=== PATIENT | female | born 2000 | race Caucasian/White ===

== ENCOUNTER 2025-04-10 11:50 | Outpatient (REF) | payer MEDICAID, SELFPAY ==
--- OUTSIDE RECORDS SUMMARY | 2025-04-10 12:56 | XMS_ITS | Continuity of Care Document ---
Author Organization [facility] Address [address] [place] [address]- Care Team Providers Care Hospitality Host Name Role Phone Not on Staff, PCP Primary Care Physician Unavail able Encounter [facility] Date(s): 04/04/25 - 04/05/[address] [address]- Discharge Disposition: A-D/C Home Attending Physician: Maddy Prado MD Admitting Physician: Maddy Prado MD Referring Physician: Not on Staff, Referring MD Encounter Type: Disch ES Allergies, Adverse Reactions, Alerts Substance Criticality Severity Reaction Reaction Severity Status azithromycin Active Immunizations Given and Recorded Vaccine Date Status Refusal Reason Measles/Mumps/Rubella Virus Vaccine 06/07/20 Given Measles/Mumps/Rubella Virus Vaccine 11/20/18 Given tetanus/diphtheria/pertussis, acel(Tdap) 04/02/20 Given influenza virus vaccine, inactivated 01/03/20 Give n influenza virus vaccine, inactivated 11/20/18 Give n Problem List Condition Confirmation Course Effective Dates Status Health St atus Informant Bilateral calf pain Confirmed Active H/O Chronic lung disease Confirmed 1998 Active H/O: pneumonia Confirmed Active Headache in Confirmed Active History of gestational hypertension Confirmed Active Itching Confirmed Active Asthma Confirmed Active Confirmed Active Rubella equivocal Confirmed Active Umbilical hernia Confirmed Active Results Radiology Reports * Exam Date Time Procedure Performing Provider Status 04/05/25 6:29 AM Knee 3 Views Right Jacquie Weinberg; Aut h (Verified) Notes: (Knee 3 Views Right) Reason For Exam: with Pain;Trauma RESULT: Knee 3 Views Right Knee 3 Views Right Hx of Present Illness: midsternal CP x 2 days that happens when she stands up fast or goes up stair . Denies cough, fever or chills N V D; Reason: Trauma; with Pain; Clinical Question(s): Fracture;Special Instructions: [place] ([place]) COMPARISON: 03/21/2025 FINDINGS: There is no evidence of acute or healing fracture, dislocation or bone lesion. No arthritic changes. No osteochondral defects or intra-articular loose bodies. Unchanged small moderate joint effusion. IMPRESSION: No acute osseous abnormality. Unchanged small moderate joint effusion. WSN: [id number] Ordering Physician: Maddy Prado Dictated By: Shad Flynn MD Dictated Date/Time: 04/05/25 8:41 am Reviewed By: Shad Flynn MD Signed By: Shad Flynn MD Signed Date/Time: 04/05/25 8:41 am Transcribed By: SURAJ Transcribed Date/Time: 04/05/25 8:40 am Vital Signs Most recent to oldest [Reference Range]: 1 2 3 Height 163 cm (04/05/25 1:47 AM) 163 cm (04/05/25 1:47 AM) 163 cm (04/04/25 10:18 PM) Weight 54.5 kg (04/05/25 1:47 AM) 54.5 kg (04/05/25 1:47 AM) 54.5 kg (04/04/25 10:18 PM) Oxygen Saturation [94-100 %] 100 % (04/05/25 5:01 AM) 100 % (04/05/25:47 AM) 100 % (04/04/25 9:45 PM) Pulse Rate [55-90 bpm] 75 bpm (04/05/25 5:01 AM) 63 bpm (04/05/25 1:47 AM) 92 bpm *H* (04/04/25 9:45 PM) Body Mass Index [18.5-24.99 kg/m2] 20.51 kg/m2 (04/05/25 1:47 AM) 20.51 kg/m2 (04/04/25 9:45 PM) Blood Pressure [90-138/55-84 mm Hg] 127/70mm Hg (04/05/25 5:01 AM) 96/63mm Hg (04/05/25 1:47 AM) 136/75mm Hg (04/04/25 9:45 PM) Respiratory Rate [16-30 br/min] 16 br/min (04/05/25 5:01 AM) 16 br/min (04/04/25 9:45 PM) Temperature [96.8-100.4 DegF] 98.3 DegF (04/05/25 5:01 AM) 98.3 DegF (04/05/25 1:47 AM) 98.4 DegF (04/04/25 9:45 PM) Mode of Delivery (Oxygen) Room air (04/05/25 5:01 AM) Room air (04/05/25 1:47 AM) Room air (04/04/25 9:45 PM) Blood pressure sites Arm, left (04/05/25 1:47 AM) Arm, left (04/04/25 9:45 PM) Temperature Route Oral (04/05/25: AM) Oral (04/05/25 1:47 AM) Oral (04/04/25 9:45 PM) Weight Obtained Via Patient/family state d (04/04/25 9:45 PM) Social History Social History Type Response Smoking Status Never (less than 100 in lifetime) entered on: 09/10/24 Sex Sex Representation Female (finding) Note * Johan LUKE, Maddy Omalley: PERFORM Event Display: Patient Education Leaflets Authored Date: [id number] Tendonitis ?? [id number] Tendonitis A tendon is the thick, fibrous cord that joins muscle to bone and allows joints to move. When a tendon becomes inflamed, it's called tendonitis. This can occur from??overuse, injury, or infection. Itoften affects the shoulders, forearm, wrist, hands, or feet. Symptoms include pain, swelling, and soreness to the touch. Moving the joint increases the pain. It takes 4 to 6 weeks or more for tendonitis to heal. It's treated by preventing motion of the tendon, occasionally with a splint or brace, using ice or heat, and the use of anti-inflammatory medicine. Home care ??? Some people find relief with ice packs. To make an ice pack, put ice cubes in a plastic bag that seals at the top. Wrap the bag in a thin towel or cloth before using. Don't put ice or an ice pack directly on the skin. ??? Other people get better relief with heat. This can include a hot shower, hot bath, or a moist towel warmed in a microwave. Try each and use the method that feels best for 15 to 20 minutes several times a day. ??? Rest the inflamed joint and protect it from movement. ??? You may use ymeg-fgs-jxcwqwd ibuprofen or naproxen??to treat pain and inflammation, unless another medicine was prescribed. If you can't take these medicines, acetaminophen??may help with the pain. But it doesn't treat inflammation. If you have chronic liver or kidney disease, have ever had a stomach ulcer or??gastrointestinal bleeding, or take blood thinners, talk with your health care provider before using these medicines. ??? As your symptoms improve, begin gradual motion at the affected joint. ?? Follow-up care Follow up with your health care provider if you're not improving after 5 to 7 days of treatment. ?? When to get medical advice Contact your health care provider right away if you have: ??? Redness over the painful area. ??? More pain or swelling at the joint. ??? A fever lasting 24 to 48 hours or as advised by your provider.??? Chills. ?? Last Reviewed Date: 2024 00:00:00 ?? [id number] The [employer]. All rights reserved. This information is not intended as a substitute for professional medical care. Always follow your healthcare professional's instructions. ?? * Johan LUKE, Maddy Omalley: PERFORM Event Display: Patient Education Leaflets Authored Date: [id number] Physical Therapy Referral ?? 250 ?? This page is FOR PRESCRIBERS Only, ? DO NOT GIVE TO THE PATIENT?? Physical Therapy Referral Program for Management of Pain In an effort to reduce narcotic use, some of our ED patients will benefit from a direct referral torehab care.?? [facility] will see INSURED patients and has a system in place to avoid sending follow up paperwork to the ED prescribers.? Note: Non-[facility] physical therapy services will probably NOT be able to handle ED generated PT referrals. ?? Patients should still follow up with their PCP as soon as possible regarding their ongoing care. Inform patients that [facility] will discuss insurance when they call.?? Some insurance plans limit the amount of PT a patient can receive each year. ?? Complete the FIRST PAGE of the patient???s referral sheet. [place] or write in diagnosis. M odify the timing for treatment, if needed. List any major precautions (i.e.?? Non-weight bearing limb), if needed. Sign, date and print your name at the bottom. ? Physical Therapy Referral Form Patient Instructions: You are being referred to physical therapy.?? This form is your referral and MUST be brought to your appointment. You need to call to set up your appointment. ?? This form can be used at any [facility] location.?? A list of locations is attached.?? 1)?? DIAGNOSIS/ICD-10 ([place] one) Cervicalgia: M54.2 ? Strain of muscle, fascia and tendon at neck level: S16.1XXD? Radiculopathy, cervical region: M54.12? Mid back pain: M54.9 ? Low back pain:?? M54.5 Strain of muscle, fascia and tendon of lower back: S39.012D Radiculopathy, lumbosacral region: M54.17 Other:? 2)? [? ]? Evaluate and Treat 2 Times/Week for 4 weeks as needed [? ]?Other: 3)? [? ]? No Precautions [? ]?Precautions: ?? I hereby certify these services as medically necessary for the patient???s plan of care. Physician???s Signature Date Physician Name (printed)? Locations You can call any location below.?? Tell them you were seen in a [facility] Department and have a referral form.?? Remember to bring your referral form with you to the appointment. PHOEBE Elliott [id number]? PHOEBE Billings [address] [address] [facility], [address]? [address] [place] [address] Road ? PHOEBE Wilk[place] [address]? PHOEBE Glover [address] [address] [facility]? [address] ? [place] [address]? [place] [address] [place] [address] Avenue ? [place] [address]? [facility] [address] ? Patient Care team information Care Team Personnel Name: Not on Staff, PCP Position: [facility] Physician (General Medicine) Member Role: PCP Care Team Related Persons Name: CHUNG GARCIA Name: ASH GARCIA Name: KEITH GARCIA Name: JUAN LUIS MORENO Name: JUAN LUIS MORENO Name: BERHANE MORENO Insurance Providers Guarantor name: CLAUDY CHEN [email or web address] Plan Information #: 1 Payer: [employer] Member Number: [id number] Policy Number: NA Group Number: NA Health Plan Information #: 2 Payer: [employer] Member Number: [id number] Policy Number: NA Group Number: NA
--- OUTSIDE RECORDS SUMMARY | 2025-04-10 12:56 | XMS_ITS | Encounter Summary ---
Author Organization [employer] Address [address] [place] [address] Care Team Providers Care Provider Relations Specialist Name Role Phone Melinda Gray MD Primary Care Provider + Encounter Details Date Type Department Care Team (Late st Contact Info) Description 04/10/2025 10:45 AM EDT Office Visit [facility] [address] [place], [place] [phone] Melinda Gray MD [address] [place], [place] [phone] Sprain of right knee, unspecified ligament, initial encounter (Primary Dx); Pre-hypertension; Mild intermittent asthma without complication; Arthralgia of both knees Social History Tobacco Use Types Packs/Day Years Used Date Smoking Tobacco: Never Smokeless Tobacco: Never Tobacco Cessation:Counseling Given: Not Answered Alcohol Use Standard Drinks/Week Comments Never 0 (1 standard drink = 0.6 oz pur e alcohol) Housing Stability Answer Date Recorded What is your housing situation today? I have patrickcorinne javier 04/10/[address] you li ve. Do you have problems with any of the following? None of the above 04/10/2025 Food Insecurity Answer Date Recorded Within the past 12 months, y ou worried that your food would run out before you got money to buy more: Never True 04/10/2025 Within the past 12 months,th e food you bought just didn't last and you didn't have enough money to get more: Never True Transportation Answer Date Recorded In the past 12 months, has l ack of transportation kept you from medical appts, meetings, work or from getting things needed for daily living? No 04/10/2025 Utilities Answer Date Recorded In the past 12 months, has t he electric, gas, oil or water [employer] threatened to shut off services in your home? No 04/10/2025 Depression Answer Date Recorded Patient Health Questionnaire-2 Score 0 04/10/2025 Internet Access Answer Date Recorded Internet Access Q1 No 04/10/2025 Internet Access Q2 I do not want or need it 03/27 Comments Unknown Sex and Gender Information Value Date Recorded Sex Assigned at Unknown 04/10/2025 10:42 AM EDT Legal Sex Female 1:50 PM EST Gender Identity Choose not to disclose 10:42 AM EDT Sexual Orientation Don't know 04/10/2025 10 :43 AM EDT documented as of this encounter Last Filed Vital Signs Vital Sign Reading Time Taken Comments Blood Pressure 145/85 04/10/2025 10:51 AM EDT Pulse 73 04/10/2025 10:51 AM EDT Temperature 36.3 ??C (97.4 ??F) 04/10/2025 10:51 AM E DT Respiratory Rate - - Oxygen Saturation 98% 04/10/2025 10:51 AM EDT Inhaled Oxygen Concentration - - Weight 57.7 kg (127 lb 4 oz) 04/10/2025 10:51 AM EDT Height 162.6 cm (5' 4 ) 04/10/2025 10:51 AM EDT Body Mass Index 21.84 04/10/2025 10:51 AM EDT documented in this encounter Functional Status * Over the past 2 weeks, how often have you been bothered by any of the following problems? Question Answer Date of Assessment Author Little interest or pleasure in doing things Not at all 04/10/2025 10:54 AM EDT Zhou Kumar [place] Feeling down, depressed, or hopeless Not at all 04/10/2025 10:54 AM EDT Zhou Kumar MA Patient Health Questionnaire-2 Score 0 04/10/2025 10:54 AM EDT Sanjeev Kumar MA documented as of this encounter Plan of Treatment Upcoming Encounters Date Type Department Care Team (Late st Contact Info) Description 07/02/2025 11:30 AM EDT Office Visit [facility] [address] [place] [address] Melinda Gray MD [address] [place] [address] Scheduled Orders Name Type Priority Associated Diagnoses Orde r Schedule MELINDA Screen,IFA, with Reflex to Titer and Pattern Lab Routine Arthralgia of both knees Expected: 04/10/2025 (Approximate), Expires: 04/10/2026 Sed Rate by Modified [place] Lab Routine Arthralgia of both knees Expected: 04/10/2025 (Approximate), Expires: 04/10/2026 C-reactive Protein Lab Routine Arthralgia of both knees Expected: 04/10/2025 (Approximate), Expires: 04/10/2026 Rheumatoid Factor Lab Routine Arthralgia of both knees Expected: 04/10/2025, Expires: 04/10/2026 Uric acid Lab Routine Arthralgia of both knees Expected: 04/10/2025 (Approximate), Expires: 04/10/2026 CBC auto differential Lab Routine Arthralgia of both knees Expected: 04/10/2025 (Approximate), Expires: 04/10/2026 Hepatitis Panel, General Lab Routine Arthralgia of both knees Expected: 04/10/2025 (Approximate), Expires: 04/10/2026 Comprehensive Metabolic Panel Lab Routine Pre-hypertension Expected: 04/10/2025 (Approximate), Expires: 04/10/2026 TSH with Reflex to Free T4 Lab Routine Pre-hypertension Expected: 04/10/2025 (Approximate), Expires: 04/10/2026 Vitamin D, 25-Hydroxy, Total, Immunoassay Lab Routine Arthralgia of both knees Expected: 04/10/2025 (Approximate), Expires: 04/10/2026 Lipid Panel with Reflex to Direct LDL Lab Routine Pre-hypertension Expected: 04/10/2025 (Approximate), Expires: 04/10/2026 documented as of this encounter Visit Diagnoses Diagnosis Sprain of right knee, unspecified ligament, initial encounter- Primary Pre-hypertension Elevated blood pressure reading without diagnosis of hypertension Mild intermittent asthma without complication Arthralgia of both knees documented in this encounter Care Teams Provider Relations Specialist Relationship Specialty Start Date End Date Melinda Gray MD [address] [place] [address] PCP - General Internal Medicine 04/10/25 documented as of this encounter
--- OUTSIDE RECORDS SUMMARY | 2025-04-10 12:56 | XMS_ITS | Encounter Summary ---
Author Organization [employer] Address [address] [place] [address] Care Team Providers Care Dye Lab Technician Name Role Phone Melinda Gray MD Primary Care Provider + Encounter Details Date Type Department Care Team (Late st Contact Info) Description 04/10/2025 Telephone [facility] [address] [place], [place] [phone] Blayne Cortez MD [address] [place], [place] [phone] Social History Tobacco Use Types Packs/Day Years Used Date Smoking Tobacco: Never Smokeless Tobacco: Never Alcohol Use Standard Drinks/Week Comments Never 0 (1 standard drink = 0.6 oz pur e alcohol) Housing Stability Answer Date Recorded What is your housing situation today? I have patrick javier 04/10/[address] you [...] t he electric, gas, oil or water company threatened to shut off services in your [...] AM EDT documented as of this encounter Miscellaneous Notes * Telephone Encounter - Sulema Guzmán - 04/10/2025 9:52 AM EDT Outgoing call to patient to book New Patient appt. Patient booked for 04-10-2025 with [facility] No Medical DX Reported : *Medical Office Receptionist advised caller to arrive 15 minutes early for the visit. Caller was also informed to notifythe clinic if the visit is no longer needed. No-shows will be placed at the bottom of the scheduling list. Appt reminder and sent via text and mail. documented in this encounter Plan of Treatment Upcoming Encounters Date Type Department Care Team (Late st Contact Info) Description 07/02/2025 11:30 AM EDT Office Visit [facility] [address] [place] [phone] Melinda Gray MD [address] [place] [address] documented as of this encounter Visit Diagnoses Not on filedocumented in this encounter Care Teams Dye Lab Technician Relationship Specialty Start Date End Date Melinda Gray MD [address] [place] [address] PCP - General Internal Medicine 04/10/25 documented as of this encounter
--- OUTSIDE RECORDS SUMMARY | 2025-04-10 12:56 | XMS_ITS | Encounter Summary ---
Author Organization [employer] Address [address] [facility] 7t [place] [address] Care Team Providers Care Business Data Analyst Name Role Phone Melinda Gray MD Primary Care Provider + Encounter Details Date Type Department Care Team (Latest Contact Info) Description 04/10/2025 Travel Social History Tobacco Use Types Packs/Day Years [...] AM EDT documented as of this encounter Functional Status * Over the [...] Description 07/02/2025 11:30 AM EDT Office Visit [facility] [address] [place] [address] Melinda Gray MD [address] [place] [address] documented as of this encounter Visit Diagnoses Not on filedocumented in this encounter Care Teams Business Data Analyst Relationship Specialty Start Date End Date Melinda Gray MD [address] [place] [id number] PCP - General Internal Medicine 04/10/25 documented as of this encounter
--- OUTSIDE RECORDS SUMMARY | 2025-04-10 12:56 | XMS_ITS | Clinical Summary ---
Author Organization [facility] Address [address] [facility] [address]t [place] [address] Care Team Providers Care Knife Setter Grinder Machine Name Role Phone Melinda Gray MD Primary Care Provider + Allergies Active Allergy Reactions Criticality Noted Date Comments Azithromycin Hives 11/09/2021 Medications albuterol 108 (90 Base) MCG/ACT inhaler Inhale 2 puffs every 6 (six) hours if needed for wheezing. 18 g 1 5 04/10/20 26 Active Blood Pressure Monitoring (Blood Pressure Cuff) misc Use daily as prescribed 1 each 5 Active Encounters Date Type Department Care Team Description 04/10/2025 10:45 AM EDT Office Visit [facility] [address] [place] [address] Melinda Gray MD Sprain of right knee, unspecified ligament, initial encounter (Primary Dx); Pre-hypertension; Mild intermittent asthma without complication; Arthralgia of both knees 04/10/2025 Population Health Risk Score [facility] ([facility]) Department [address] [phone] Provider, Population Health Generic 04/10/2025 Travel 04/10/2025 Telephone [facility] [address] [place] [address] Blayne Cortez MD from Last 3 Months Social History Tobacco Use Types Packs/Day Years [...] Don't know 04/10/2025 10 :43 AM EDT Last Filed Vital Signs Vital Sign Reading [...] Mass Index 21.84 04/10/2025 10:51 AM EDT Plan of Treatment Upcoming Encounters Date Type Department Care Team (Late st Contact Info) Description 07/02/2025 11:30 AM EDT Office Visit [facility] [address] [place] [address] Melinda Gray MD [address] [place], [place] [phone] Health Maintenance Due Date Last Done Comments HIV Screening 1999 Alcohol/Substance Use Screening 2011 Family Planning (PISQ) 2014 Hepatitis C Screening 2017 Hepatitis A Vaccines (2 of 2 - 2-dose series) 03/14/2018 09/13/2017 Pneumococcal Vaccine: Pediatrics (0 to 5 Years) and At-Risk Patients (6 to 49) Years) (1 of 2 - PCV) 2018 02/01/2001, 10/24/2000, 09/19/2000 Pap Smear 2020 COVID-19 Vaccine ( - 2023- season) 2024 Influenza Vaccine (#1) 2024 , 11/23/2021, 01/03/2020, Additional history exists Depression Screening 04/10/2026 04/10/2025, 04/10/20 25 SDOH Screening 04/10/2026 04/10/2025 Tobacco Screening 04/10/2026 04/10/2025 DTaP/Tdap/Td Vaccines (11 - Td or Tdap) 04/11/2033 04/11/2023, 04/19/2022, 04/02/2020, Additional history exists Zoster Vaccines (1 of 2) 2049 RSV Patients and Patients Aged 60 years or older (1 - 1-dose 75+ series) 2074 Hepatitis B Vaccines Completed 09/19/2000, 04/05/2000, 1999 HIB Vaccines Completed 01/03/2002, 09/28, 04/05/2000, Additional history exists IPV Vaccines Completed 07/26/2005, 08/28, 04/05/2000, Additional history exists HPV Vaccines Completed 02/11/2014, 06/0 11/2011, 08/12/2011 Meningococcal Vaccine Completed 09/06/2016, 011 Meningococcal B Vaccine Aged Out No l onger eligible based on patient's age to complete this topic RSV under 20 months Aged Out No longe r eligible based on patient's age to complete this topic Rotavirus Vaccines Aged Out No longer eligible based on patient's age to complete this topic Insurance [facility] C[facility] Care Teams Knife Setter Grinder Machine Relationship Specialty Start Date End Date Melinda Gray MD [address] [place] [address] PCP - General Internal Medicine 04/10/25
--- OUTSIDE RECORDS SUMMARY | 2025-04-10 12:57 | XMS_ITS | Encounter Summary ---
Author Organization [facility] Address [address] [place] [phone] Phone Care Team Providers Care Planner Name Role Phone Eliana Roper MD Primary Care Provider [phone] Encounter Details Date Type Department Care Team (Late st Contact Info) Description 04/15/2018 Conversion [facility]counter [facility] [address] [place] [address] Eliana Roper MD [address] [place] [address] Social History Tobacco Use Types Packs/Day Years Used Date Smoking Tobacco: Never Assessed Comments Unknown Sex and Gender Information Value Date Recorded Sex Assigned at Not on file Legal Sex Female 6:25 PM EDT Gender Identity Not on file Sexual Orientation Not on file documented as of this encounter Plan of Treatment Not on file documented as of this encounter Visit Diagnoses Not on filedocumented in this encounter Care Teams Planner Relationship Specialty Start Date End Date Eliana Roper MD [address] [place] [address] PCP - General 04/04/18 06/07/20 documented as of this encounter
--- OUTSIDE RECORDS SUMMARY | 2025-04-10 12:57 | XMS_ITS | Encounter Summary ---
Author Organization [facility] Address [address] [place] [address] Phone Care Team Providers Care Hearing Screener Name Role Phone Eliana Roper MD Primary Care Provider [phone] Encounter Details Date Type Department Care Team ([facility] st Contact Info) Description 04/27/2020 [facility] Out[facility] [address] [address] Eliana Roper MD [address] [place] [address] Social History Tobacco Use Types Packs/Day Years [...] on filedocumented in this encounter Care Teams Hearing Screener Relationship Specialty Start Date End Date Eliana Roper MD [address] [place] [address] PCP - General 04/04/18 06/07/20 documented as of this encounter
--- OUTSIDE RECORDS SUMMARY | 2025-04-10 12:57 | XMS_ITS | Clinical Summary ---
Author Organization [facility] Address [address] [place] [id number] Phone Care Team Providers Care Biological Aide Name Role Phone Unavailable Primary Care Provider Unavailabl e Allergies Active Allergy Reactions Criticality Noted Date Comments Azithromycin Hives Medications albuterol HFA 108 (90 Base) MCG/ACT inhaler Inhale. 10/28/2016 Act mirna Active Problems Problem Noted Date Diagnosed Date Susceptible varicella 11/21/2018 Overview (11/21/2018): OB found her to be varicella nonimmune so should have at least one additional dose varicella vaccine. See tel encounter. Should be after 12/21/18 since received MMR#3 on 11/20/18 (Rubella indeterminate). ADHD 10/12/2018 Overview (10/12/2018): Variable results on [facility] [id number], also positive for ODD, conduct disorder Mild intermittent asthma without complication Resolved Problems Problem Noted Date Diagnosed Date Resolved Date 07/26/2018 11/23/2018 Immunizations Immunization Administration Dates Next Due DTaP 07/27/2005, 2,10/24/2000,04/05,01/14/2000 HPV, Quadrivalent 02/11/2014,04/27/2012,08/12/20 11 Hep A, ped/adol 09/13/2017 Hep B, ped/adol 09/19/2000,04/05/2000,1999 Hib (PRP-T) 01/03/2002, 0,04/05/2000,01/14 IPV 07/26/2005, 0,04/05/2000,01/14 Influenza, injectable, quadrivalent 09/06/2016,0 08/13/2012,07/09/2010 Influenza, injectable, quadr ivalent, preservative free 11/20/2018,09/13/2017,08/22/2014,02/11,08/12/2011 MMR 11/20/2018,07/27/2005,01/05/2001 Meningococcal Conj (Menactra) MCV4P 09/06/2016,0 08/12/2011 Pneumococcal Conjugate 02/01/2001,10/24/2000, Tdap 08/12/2011 Varicella 06/11/2009,01/05/2001 Family History Medical History Relation Name Comments ADD / ADHD Brother Hypertension Father Sleep apnea Father Bipolar disorder Maternal Grandmother Schizophrenia Maternal Grandmother ADD / ADHD Mother Addiction problem Mother Bipolar disorder Mother No Known Problems Paternal Grandmother Relation Name Status Comments Brother Father sleep apnea morris gnosed with Hypertension Maternal Grandfather Maternal Grandmother Alive bipolar , schizophrenia diagnosed with NONPSYCHOT BRAIN SYN NOS Mother Alive adhd, bipolar, addictions, incarceration and over eight children by at least 3 fathers. diagnosed with NONPSYCHOT BRAIN SYN NOS Other Alive Siblings: broth er adhd, another sib being tested for adhd and maternal first cousin with adhd. Paternal Grandfather Alive Paternal Grandmother Alive Healthy Social History Tobacco Use Types Packs/Day Years Used Date Smoking Tobacco: Never Assessed Comments Unknown Sex and Gender Information Value Date Recorded Sex Assigned at Not on file Legal Sex Female 6:25 PM EDT Gender Identity Not on file Sexual Orientation Not on file Last Filed Vital Signs Vital Sign Reading Time Taken Comments Blood Pressure 114/64 03/28/2018 12:00 AM EDT Pulse 96 01/19/2016 12:00 AM EST Temperature 37.2 ??C (98.9 ??F) 03/28/2018 12:00 AM E DT Respiratory Rate - - Oxygen Saturation 99% 01/19/2016 12:00 AM EST Inhaled Oxygen Concentration - - Weight 66.7 kg (147 lb) 03/28/2018 12:00 AM EDT Height 162.6 cm (5' 4 ) 03/28/2018 12:00 AM EDT Body Mass Index 25.23 03/28/2018 12:00 AM EDT Plan of Treatment Health Maintenance Due Date Last Done Comments Hepatitis A Vaccines (2 of 2 - 2-dose series) 03/14/2018 09/13/2017 DTaP,Tdap,and Td Vaccines (7 - Td or Tdap) 08/12/2021 08/12/2011, 07/27/2005, 01/03/2002, Additional history exists Influenza Vaccines (#1) 2024 11/20/20 18, 09/13/2017, 09/06/2016, Additional history exists COVID-19 Vaccine ( season) 2024 Hepatitis B Vaccines Completed 09/19/2000, 04/05/2000, 1999 Pneumococcal Vaccine Completed 02/01/2001, 10/24/2000, 09/19/2000 HIB Vaccines Completed 01/03/2002, 09/28, 04/05/2000, Additional history exists IPV Vaccines Completed 07/26/2005, 08/28, 04/05/2000, Additional history exists Varicella Vaccines Completed 06/11/2009, 01/05/2001 HPV Vaccines Completed 02/11/2014, 0611/2011, 08/12/2011 Meningococcal Vaccine Completed 09/06/2016, 011 MMR Vaccines Completed 11/20/2018, 06/29, 01/05/2001 Men B Vaccine Aged Out No longer elig ible based on patient's age to complete this topic Procedures * Due to [place] [employer] law, this organization might not be sharing sensitive test results. Procedure Name Priority Date/Time Associated Diagnosis Comments CHLAMYDIA AND GONORRHEA, AMPLIFIED Routine 02/06/2018 12:00 AM EDT from Last 3 Months or Most Recently Relevant to Health Maintenance Results * Due to [place] [employer] law, this organization might not be sharing sensitive test results. * Chlamydia and Gonorrhoea, Amplified (02/06/2018 12:00 AM EDT) URINE CHLAMYDIA AMP PROBE NEGATIVE (NEG) CONVERTED LABS Comment: No Chlamydia Trachomatis RNA detected in this patient's sample (REFERENCE RANGE/NORMAL VALUE: NOT DETECTED) Note: This test uses autoclave operator- mediated amplification method to detect rRNA from C. Trachomatis URINE GC AMP PROBE NEGATIVE (NEG) C ONVERTED LABS Comment: No Neisseria Gonorrhoeae RNA detected in this patient's sample (REFERENCE RANGE/NORMAL VALUE: NOT DETECTED) NOTE: This test uses autoclave operator-mediated amplification method to detect rRNA from N.Gonorrhoeae. A negative result does not preclude infection. In the case of a negative urine result, testing of an endocervical(female) or urethral (male) specimen is recommended if there is high clinical suspicion of infection. Due to very high sensitivity of Nucleic Acid Amplification Test, false positive results may occur. Therefore, specimen handling is extremely important. In patients in whom the disease is unlikely, additional sample for testing should be considered after an initial positive result. The performance characteristics of this test have not been evaluated in children. The Aptima Combo2 assay is not intended for the evaluation of suspected sexual abuse or for other medico-legal indications. The ordering provider should assess if the patient had consensual sex without risk of sexual abuse. Consult the [facility] if needed. Contact phone number . Therapeutic failure or success cannot be determined with the Aptima Combo2 assay since nucleic acid may persist following appropriate antimicrobial therapy. The Centers for Disease Control and Prevention (CDC) recommends confirmatory retesting using culture or a different nucleic acid amplification test when positive results occur, if indicated. 02/06/2018 Narrative CONVERTED LABS - 02/06/2018 12:00 AM EDT Screening Negative Puja Mejia 02/05/2018 10:28:17 AM > Adelina Fernandez 02/06/2018 12:37:00 PM > us Adelina Fernandez MD LAB MICROBIOLOGY - GENERAL OR DERABLES Final Result CONVERTED LABS from Last 3 Months or Most Recently Relevant to Health Maintenance Insurance
[2025-04-10 13:25] LABS: MANUAL DIFF FLAG NO
[2025-04-10 13:38] LABS: Basophils Percent Auto 0.5 % (0-2); Eosinophils Absolute Auto 0.2 X10*3/uL (0.0-0.4); Eosinophils Percent Auto 3.2 % (0-4); Hematocrit 42.4 % (37.0-47.0); Hemoglobin 14.1 g/dl (12.0-16.0); Imm Gran Abs Auto 0.02 X10*3/uL (0.00-0.03); Imm Gran Pct Auto 0.3 % (0.0-0.4); Lymphocytes Absolute Auto 2.4 X10*3/uL (1.2-4.9); Mean Corpuscular HGB Conc 33.3 g/dl (31.0-35.0); Mean Corpuscular Volume 84.3 fL (80.0-98.0); Mean Platelet Volume 10.7 fL (9.4-12.3); Monocytes Absolute Auto 0.4 X10*3/uL (0.1-1.2); Monocytes Percent Auto 4.7 % (2-11); Neutrophils Absolute Auto 4.4 x10*3/uL (2.0-8.3); Neutrophils Percent Auto 59.3 % (45-73); Platelet Count 265 X10*3/uL (160-400); Red Blood Count 5.03 X10*6/uL (4.20-5.50); Red Cell Distribution Width 14.5 % (11.0-16.0); White Blood Count 7.5 X10*3/uL (4.8-10.8)
[2025-04-10 13:45] LABS: Rheumatoid Factor < 13.0 IU/mL (<15.0)
[2025-04-10 13:54] LABS: Alanine Aminotransferase 16 U/L (0-31); Albumin Level 4.1 g/dL (3.5-5.0); Alkaline Phosphatase 76 U/L (39-117); Anion Gap 11 (12-20); Aspartate Amino Transferase 27 U/L (5-31); Bilirubin Total 0.2 mg/dL (0.0-1.0); Blood Urea Nitrogen 18 mg/dL (9-16); C Reactive Protein 0.12 mg/dL (< or = 0.50); Calcium 9.1 mg/dL (8.4-10.2); Carbon Dioxide 23 mmol/L (22-29); Chloride 110 mmol/L (96-108); Cholesterol 135 mg/dL (<200); Estimated Glomerular Filt Rate > 60; Glucose Random 87 mg/dL (60-115); HDL Cholesterol 44 mg/dL (>40); LDL Cholesterol Calculated 86 mg/dL (<100); Potassium 4.2 mmol/L (3.3-5.1); Sodium 140 mmol/L (135-145); Total Protein 7.6 g/dL (6.5-8.0); Triglycerides 29 mg/dL (<150)
[2025-04-10 14:14] LABS: Erythrocyte Sedimentation Rate 9 MM/HR (0-20)
[2025-04-10 14:17] LABS: HBS Num1 0.15 mIU/mL (0-7.99); HBc Num1 0.07 S/CO (0.00-0.79); HBsAGNum1 0.36 S/CO (0.00-0.99); Hepatitis A Antibody IgM 0.15 Index (0-0.79); Hepatitis B Core Antibody Nonreactive (Nonreactive); Hepatitis B Surface Antigen Negative (Negative); ~HepC Num1 0.17 S/CO (0.00-0.79); ~Hepatitis A Antibody IgM Nonreactive (Nonreactive); ~Hepatitis B Surface Antibody NONREACTIVE (Nonreactive); ~Hepatitis C Antibody Nonreactive (Nonreactive)
[2025-04-10 14:33] LABS: TSH reflex Free T4 1.87 uIU/mL (0.32-4.0); Uric Acid 3.7 mg/dL (2.4-5.7)
[2025-04-10 15:29] LABS: Reflex LDLD? No
[2025-04-15 09:24] LABS: Anti Nuclear Antibody Screen NEGATIVE (NEGATIVE)
== END 2025-04-10 11:51 | disposition home or self-care (01) ==
LOC: HO.HHCL 11:50
PROVIDERS: Visit Provider Internal Medicine
DX: M25.561 Pain in right knee (principal); M25.562 Pain in left knee; R03.0 Elevated blood-pressure reading, without diagnosis of hypertension
CPT/HCPCS: 36415; 80053; 80061; 82306; 84443; 84550; 85025; 85652; 86038; 86140; 86431; 86704; 86706; 86709; 86803; 87340